=== PATIENT | male | born 1930 | race Caucasian/White ===

== ENCOUNTER → 2017-07-15 | Outpatient (CLI) | payer MEDICARE ==
[~2017-07-15] MED LIST: BETA BLOCKER PO; BLOOD PRESSURE MED; BLOOD PRESSURE MED PO; CARV6.252 PO; CIPR500T3 PO; HYDR-3237 PO; LISI-170 PO; LISINOPRIL PO; METO25TA35 PO; METR500T PO; None per pt.; OXYC1TAB7 PO; RIVA20TA PO; SULF1TAB24 PO
== END | disposition home or self-care (01) ==
LOC: CFH 12:33
PROVIDERS: ATTEND Family Medicine
DX: R05 Cough (principal); M51.36 Other intervertebral disc degeneration, lumbar region
CPT/HCPCS: 71020

== ENCOUNTER → 2017-08-14 | Outpatient (CLI) | payer MEDICARE | LOC: CFH 09:06 | PROVIDERS: ATTEND Family Medicine | DX: R29.6 Repeated falls (principal) | CPT/HCPCS: 82565 ==

== ENCOUNTER → 2017-08-26 | Outpatient (CLI) | payer MEDICARE ==
[~2017-08-26] MED LIST changes: +GADOBUTROL 7.5 MMOL/7.5 ML PFS ONE
== END | disposition home or self-care (01) ==
LOC: RAD 10:51
PROVIDERS: ATTEND Family Medicine
DX: I67.82 Cerebral ischemia (principal); G31.9 Degenerative disease of nervous system, unspecified; R26.0 Ataxic gait
CPT/HCPCS: 70553; A9585

== ENCOUNTER 2018-02-28 18:28 | Emergency (ER) | payer MEDICARE ==
[~2018-02-28] VITALS: Ht 170.2 cm; Wt 65.9 kg
[~2018-02-28 18:28] MED LIST changes: -GADOBUTROL 7.5 MMOL/7.5 ML PFS ONE
[2018-02-28] MEDS ORDERED: SODIUM CHLORIDE 0.9% 1,000ML IVBOLUS ONE (19:00)
[2018-02-28] MEDS ORDERED: SODIUM CHLORIDE FLUSH 10ML SYR IVF ONE (19:00)
[2018-02-28] MEDS ORDERED: PLEASE ENTER HEIGHT AND WEIGHT MC SCH (19:00)
[2018-02-28 19:23] LABS: BASOPHILS % (AUTO) 0 % (0-1); EOSINOPHILS # (AUTO) 0.01 x10^3/uL (0-0.4); EOSINOPHILS % (AUTO) 0 % (1-7); LYMPHOCYTES # (AUTO) 0.52 x10^3/uL (1-3.4); LYMPHOCYTES % (AUTO) 8 % (22-44); MD NO; MEAN CORPUSCULAR HEMOGLOBIN 31.5 pg (27.5-34.5); MEAN CORPUSCULAR HGB CONC 34.2 g/dL (33.2-36.2); MEAN PLATELET VOLUME 9.7 fL (7.4-10.4); MONOCYTES % (AUTO) 13 % (2-9); NEUTROPHILS # (AUTO) 4.98 x10^3/uL (1.8-6.8); NEUTROPHILS % (AUTO) 79 % (42-75); PLATELET COUNT 159 x10^3/uL (130-400); RED BLOOD COUNT 4.32 x10^6/uL (4.38-5.82); RED CELL DISTRIBUTION WIDTH 14.4 % (9.4-14.8)
[2018-02-28 19:29] LABS: INTERNATIONAL NORMALIZED RATIO 1.03 (0.93-1.1); PROTHROMBIN TIME 10.7 Seconds (9.6-11.5)
[2018-02-28 19:32] LABS: ALANINE AMINOTRANSFERASE 55 U/L (12-78); ALBUMIN 3.7 g/dL (3.4-5.0); ANION GAP 8 mmol/L (5-15); CALCIUM 9.2 mg/dL (8.5-10.1); CHLORIDE 108 mmol/L (98-107); CREATININE 1.79 mg/dL (0.7-1.3)
[2018-02-28 19:37] LABS: ALKALINE PHOSPHATASE 225 U/L (45-117); BILIRUBIN,TOTAL 1.5 mg/dL (0.2-1.0); TROPONIN I < 0.015 ng/mL (0.000-0.045)
[2018-02-28 20:30] LABS: CULTURE INDICATED? YES; MICROSCOPIC INDICATED
[2018-02-28 21:18] VITALS: BP 130/69
== END 2018-02-28 21:35 | disposition home or self-care (01) ==
LOC: ED 19:00
DX: G30.1 Alzheimer's disease with late onset (principal); F02.80 Dementia in other diseases classified elsewhere, unspecified severity, without behavioral disturbance, psychotic disturbance, mood disturbance, and anxiety; N17.9 Acute kidney failure, unspecified; I48.91 Unspecified atrial fibrillation; I10 Essential (primary) hypertension
CPT/HCPCS: 36415; 70450; 71045; 80053; 81001; 82962; 83605; 84145; 84484; 85025; 85610; 85730; 87040; 87086; 93005; 99285; J7030